=== PATIENT | male | born 1975 | race Caucasian/White ===

== ENCOUNTER 2022-06-18 10:04 | Emergency (ER) | payer OTHER, SELFPAY ==
[2022-06-18 10:21] VITALS: BP 148/65; PULSE 89; RESP 18; TEMP 36.2; O2SAT 98; BMI 38.3
--- NOTE | 2022-06-18 10:33 | CRLHL7_ITS ---
For Patients: As a result of the Century Cures Act, medical imaging exams and procedure reports are released immediately into your electronic medical record. You may view this report before your referring provider. If you have questions, please contact your health care provider. Indication: Swelling inguinal region-rule out abscess Technique: Grayscale and color Doppler ultrasound of the right upper thigh in the inguinal region. Comparison: None Findings: Within the right upper thigh anteriorly and associated with the surgical incision, there is a circumscribed mildly hypoechoic collection of fluid in the subcutaneous tissues measuring 7.5 x 3.4 x 5.9 cm. No solid component and no internal vascularity. Impression: 7.9 x 3.4 x 5.9 cm fluid collection within the subcutaneous tissues of the right anterior thigh in the inguinal region may represent an infected postop seroma. Dictated by Sergei Treadwell MD @ 06/18/2022 11:28:08 AM (Electronically Signed)
--- NOTE | 2022-06-18 10:44 | ED_ITS ---
HPI - General Adult General Chief complaint: Post Op Complication Stated complaint: Irritated incision on right leg Time Seen by Provider: 06/18/22 10:26 Source: patient Mode of arrival: ambulatory Limitations: no limitations History of Present Illness HPI narrative: 46-year-old male coming in today complaining of right leg swelling. States that he had an umbilical hernia repair surgery in December and he had some swollen lymph nodes in the inguinal region that were biopsied. He states that the incision of the right inguinal region has never quite healed appropriately. He states that becomes swollen and then goes back to normal. He states that sometimes it turns bright red and then goes back to normal. However yesterday it got significantly swollen more so than ever before became red and hot and he went into the [place] ER. He was told to take ibuprofen. Patient states that since then it has become even more swollen and quite tender to touch. He had a fever yesterday of greater than 100. No fevers today that he is aware of. Denies any nausea or vomiting. Not having any chills. Related Data Previous Rx's Medication Instructions Recorded cephalexin 500 mg capsule 500 mg PO QID 7 days #28 caps 06/18/22 Allergies Allergy/AdvReac Type Severity Reaction Status Date / Time No Known Drug Allergies Allergy Verified 06/18/22 10:26 Review of Systems Status of ROS: Reports: 10 or more systems reviewed and unremarkable except as noted in History and below [facility] Social History Smoking Status: Never smoker Do you use any of these nicotine containing products: None How often do you have a drink containing alcohol: monthly or less AUDIT-C Alcohol total score: 1 Non-prescribed substance use: denies use Exam Narrative: Exam Narrative: Well-nourished well-developed patient in no acute distress. Alert and oriented. Answers questions appropriately. Mood and affect are appropriate. Thoughts are goal oriented and rational. No tangential or magical thinking noted. Patient speaks in full sentences without needing to catch their breath. HEENT: Normocephalic atraumatic. Pupils are equally round reactive to light. Extraocular muscles are intact. Conjunctivae are moist without any icterus noted. Moist mucous membranes. Cardiovascular: Heart is regular rate and rhythm S1 and S2 are present without any murmurs. Lungs: Clear to auscultation bilaterally no wheezes rhonchi or rales are appreciated. Patient takes deep breaths without any discomfort. Abdomen: Soft and nontender nondistended with normal bowel sounds. Extremities: Bilateral lower extremities are without edema. Right inguinal region shows a healed incision however the entire area is quite swollen, tender, firm and hot to touch consistent with a cellulitis. I do not appreciate any areas of fluctuance however there is a large amount of swelling present. Const: Vital Signs, click to edit/add: Vital Signs - 24 hr 06/18/22 10:21 Temperature 97.2 F L Pulse Rate [Right Pulse Oximeter] 89 Respiratory Rate 18 Blood Pressure [Ri ght Upper Arm] 148/65 H Pulse Oximetry 98 Oxygen Delivery Me thod Room Air Course Course Hospital Course: Given the amount of swelling present we did go ahead and proceed with an ultrasound which showed an almost 8 cm x 5 cm pocket representing an infected seroma. Did consult with our surgeon, Dr. Garcia, who recommended aspiration and antibiotic treatment with follow-up in the surgical clinic. Therefore, area was cleaned in the usual sterile manner and a 22 gauge needle was used. 3 mL of clear yellow color serous fluid was aspirated. I was not able to get any more than that. Did attempt a 2nd location without success. Upon removal of the needle the puncture wound did continue to leak clear fluid. Pressure dressing was applied. Fluid was sent for culture. Vital Signs Vital signs: Initial Vital Signs Temperature 97.2 F L 06/18/22 10:21 Temperature Source Temporal Artery Scan 06/18/22 10:21 Pulse Rate 89 06/18/22 10:21 Respiratory Rate 18 06/18/22 10:21 Blood Pressure 148/65 H 06/18/22 10:21 Blood Pressure Mean 92 06/18/22 10:21 Blood Pressure Position Sitting 06/18/22 10:21 Pulse Oximetry 98 06/18/22 10:21 Oxygen Delivery Method 06/18/22 10:21 Vital Signs Temperature 97.2 F L 06/18/22 10:21 Pulse Rate 89 06/18/22 10:21 Respiratory Rate 18 06/18/22 10:21 Blood Pressure 148/65 H 06/18/22 10:21 Pulse Oximetry 98 06/18/22 10:21 Oxygen Delivery Method 06/18/22 10:21 Temperature 97.2 F L 06/18/22 10:21 Pulse Rate 89 06/18/22 10:21 Respiratory Rate 18 06/18/22 10:21 Blood Pressure 148/65 H 06/18/22 10:21 Pulse Oximetry 98 06/18/22 10:21 Oxygen Delivery Method 06/18/22 10:21 Medical Decision Making MDM Narrative Medical decision making narrative: 46-year-old male with postoperative infected seroma. Drain per above. Patient will be put on Keflex q.i.d. for the next week. And he will follow up with our surgery team next week as well. Imaging Data Soft tissue ultrasound: Attestation: I have reviewed the pertinent imaging results. Radiologist's impression: Swelling inguinal region-rule out abscess Technique: Grayscale and color Doppler ultrasound of the right upper thigh in the inguinal region. Comparison: None Findings: Within the right upper thigh anteriorly and associated with the surgical incision, there is a circumscribed mildly hypoechoic collection of fluid in the subcutaneous tissues measuring 7.5 x 3.4 x 5.9 cm. No solid component and no internal vascularity. Impression: 7.9 x 3.4 x 5.9 cm fluid collection within the subcutaneous tissues of the right anterior thigh in the inguinal region may represent an infected postop seroma. Discharge Plan Discharge Clinical Impression: Infected postoperative seroma Patient Disposition: Home, Self-Care Condition: Stable Additional Instructions: Take all antibiotics as prescribed. Follow-up with surgery this coming week-an appointment will be made for you today if possible. Return to the ER if the area gets worse instead of better over the next 48 hours. Prescriptions: New cephalexin 500 mg capsule 500 mg PO QID 7 Days Qty: 28 0RF Follow Up/Referrals: Provider,Not a Local [Primary Care Provider] - Stand Alone Forms: [facility] Info Instructions
== END 2022-06-18 12:56 | disposition home or self-care (01) ==
PROVIDERS: Emergency Provider Family Medicine
DX: L76.34 Postprocedural seroma of skin and subcutaneous tissue following other procedure (principal)
CPT/HCPCS: 10140; 76882; 87070; 87186; 99284

== ENCOUNTER 2022-06-22 10:43 | Day surgery (SDC) | payer OTHER, SELFPAY ==
[2022-06-22 11:01] VITALS: BP 148/112; PULSE 89; RESP 18; TEMP 36.1; O2SAT 96; BMI 37.9
[2022-06-22] MEDS: 0.9 % SODIUM CHLORIDE 1000 ml 1,000 ML IV (11:30)
[2022-06-22] MEDS: KETOROLAC 30 MG/ML inj IVP (11:35)
[2022-06-22 11:37] LABS: Basophils Absolute Auto 0.02 K/uL (0.00-0.30); Basophils Percent Auto 0.3 % (0.0-3.0); Eosinophils Absolute Auto 0.11 K/uL (0.00-0.50); Eosinophils Percent Auto 1.6 % (0.0-7.0); Hematocrit 44.7 % (37.0-53.0); Hemoglobin* 14.8 gm/dL (13.5-17.5); Immature Granulocytes Abs Auto 0.11 K/uL (0.00-0.30); Immature Granulocytes Pct Auto 1.6 %; Lymphocytes Percent Auto 18.5 % (20-44); Mean Corpuscular HGB Conc 33 gm/dL (32-36); Mean Corpuscular Hemoglobin 30 pg (26-34); Mean Corpuscular Volume 90 fL (80-100); Monocytes Percent Auto 10.8 % (0.0-11.0); Neutrophils Absolute Auto 4.52 K/uL (1.7-7.0); Neutrophils Percent Auto 67.2 % (42.0-72.0); Platelet Count* 289 K/uL (140-440); RDW Coefficient of Variation % 13.1 % (11.5-15.5); Red Blood Count 4.98 m/uL (4.30-5.90); White Blood Count* 6.74 K/uL (4.50-11.00)
[2022-06-22 11:38] LABS: Slide Review Reflex No
[2022-06-22 11:52] LABS: Chloride* 108 mmol/L (96-114); Potassium* 4.7 mmol/L (3.6-5.1); Sodium* 140 mmol/L (135-149)
[2022-06-22 11:54] LABS: Creatinine* 0.9 mg/dL (0.5-1.5); Estimated Glomerular Filt Rate 105 ml/min
[2022-06-22 11:55] LABS: Blood Urea Nitrogen* 14 mg/dL (5-24); Carbon Dioxide* 25 mmol/L (20-32); Glucose* 106 mg/dL (60-115)
[2022-06-22 11:56] LABS: Calcium* 8.5 mg/dL (8.4-10.6)
[2022-06-22 12:12] LABS: SARS PCR* Negative SARS-CoV-2 (Negative)
--- NOTE | 2022-06-22 12:33 | ED_ITS ---
HPI - Skin/Abscess/Foreign Bdy General Date Seen: 06/22/22 Chief complaint: Skin/Abscess/Foreign Body Stated complaint: cellulitis Time Seen by Provider: 06/22/22 10:48 Source: patient Mode of arrival: ambulatory Limitations: no limitations History of Present Illness HPI narrative: Patient is a 38-year-old gentleman who has been struggling with a right-sided groin all issue. Please see the previous note by the ER physician a few days ago, he had lymph node biopsy done at [facility], he was seen here, few days ago started on Keflex aspiration was done which is growing staphylococcal aureus. His fevers are markedly improved but the swelling has gotten bigger if anything since this occurred he denies squeezing it, there has been no discharge. The lymph node he knows is negative for malignancy. But he says is growing in size. Came back to the emergency room for both pain and also the size of it. Previously seen in [facility] emergency room where they told him to take Tylenol and ibuprofen. complaint: abscess/boil Onset (ago): week(s) Tetanus up to date: yes Severity: moderate Quality: aching Pain Consistency: constant Relieving factors: none Exacerbating factors: palpation Treatments prior to arrival: none Related Data Previous Rx's Medication Instructions Recorded cephalexin 500 mg capsule 500 mg PO QID 7 days #28 caps 06/18/22 Allergies Allergy/AdvReac Type Severity Reaction Status Date / Time No Known Drug Allergies Allergy Verified 06/22/22 13:35 Review of Systems Status of ROS: Reports: 10 or more systems reviewed and unremarkable except as noted in History and below PFSH PFSH Medical History (Updated 06/22/22 @ 13:38 by Garett Gonzalez MD) Obesity Surgical History (Updated 06/22/22 @ 13:25 by Laura Vazquez MD) H/O lymph node biopsy H/O umbilical hernia repair S/P knee surgery Social History Smoking Status: Never smoker Do you use any of these nicotine containing products: None How often do you have a drink containing alcohol: monthly or less AUDIT-C Alcohol total score: 1 Non-prescribed substance use: denies use Exam Narrative: Exam Narrative: Examination shows a large abdomen, no tenderness to palpation but the right groin has an area of approximately 6 x 6 cm, which is reddened and sore. I was able to use the ultrasound machine which showed septated areas of fluid that is nonvascular, consistent with multiple abscesses. I did speak to Dr. Vazquez from General surgery, she will come and see the patient. Const: Vital Signs, click to edit/add: Vital Signs - 24 hr 06/22/22 11:01 Temperature 97.0 F L Pulse Rate [Right Pulse Oximeter] 89 Respiratory Rate 18 Blood Pressure [Le ft Upper Arm] 148/112 H Pulse Oximetry 96 Oxygen Delivery Me thod Room Air Documenting provider has reviewed patient's vital signs: yes Course Vital Signs Vital signs: Initial Vital Signs Temperature 97.0 F L 06/22/22 11:01 Temperature Source Temporal Artery Scan 06/22/22 11:01 Pulse Rate 89 06/22/22 11:01 Respiratory Rate 18 06/22/22 11:01 Blood Pressure 148/112 H 06/22/22 11:01 Blood Pressure Mean 124 06/22/22 11:01 Blood Pressure Position Sitting 06/22/22 11:01 Pulse Oximetry 96 06/22/22 11:01 Oxygen Delivery Method 06/22/22 11:01 Vital Signs Temperature 97.0 F L 06/22/22 11:01 Pulse Rate 89 06/22/22 11:01 Respiratory Rate 18 06/22/22 11:01 Blood Pressure 148/112 H 06/22/22 11:01 Pulse Oximetry 96 06/22/22 11:01 Oxygen Delivery Method 06/22/22 11:01 Temperature 97.0 F L 06/22/22 11:01 Pulse Rate 89 06/22/22 11:01 Respiratory Rate 18 06/22/22 11:01 Blood Pressure 148/112 H 06/22/22 11:01 Pulse Oximetry 96 06/22/22 11:01 Oxygen Delivery Method 06/22/22 11:01 MDM - Skin/Abscess/Foreign Bdy Lab Data Labs: Lab Results 06/22/22 06/22/22 06/22/22 Range/Units 11:11 11:30 11:30 WBC 6.74 (4.50-11.00) K/uL RBC 4.98 (4.30-5.90) m/uL Hgb 14.8 (13.5-17.5) gm/dL Hct 44.7 (37.0-53.0) % MCV 90 (80-100) fL MCH 30 (26-34) pg MCHC 33 (32-36) gm/dL RDW Coeff of Shayne 13.1 (11.5-15.5) % Plt Count 289 (140-440) K/uL Neut % (Auto) 67.2 (42.0-72.0) % Lymph % (Auto) 18.5 L (20-44) % Hooker % (Auto) 10.8 (0.0-11.0) % Eos % (Auto) 1.6 (0.0-7.0) % Baso % (Auto) 0.3 (0.0-3.0) % Neut # (Auto) 4.52 (1.7-7.0) K/uL Lymph # (Auto) 1.20 (0.90-2.90) K/uL Hooker # (Auto) 0.70 (0.00-0.90) K/UL Eos # (Auto) 0.11 (0.00-0.50) K/uL Baso # (Auto) 0.02 (0.00-0.30) K/uL Sodium 140 (135-149) mmol/L Potassium 4.7 (3.6-5.1) mmol/L Chloride 108 (96-114) mmol/L Carbon Dioxide 25 (20-32) mmol/L BUN 14 (5-24) mg/dL Creatinine 0.9 (0.5-1.5) mg/dL Estimated Creat Clear 116.70 Estimated GFR 105 ml/min Glucose 106 (60-115) mg/dL Calcium 8.5 (8.4-10.6) mg/dL SARS-CoV-2 (PCR) Negative SARS-CoV-2 (Negative) Influenza Type A (PCR) Negative PCR FLU A (Negative) Influenza Type B (PCR) Negative PCR FLU B (Negative) RSV (PCR) Negative PCR RSV (Negative) Discharge Plan Discharge Clinical Impression: Abscess of skin or subcutaneous tissue, Infected postoperative seroma Patient Disposition: Admitted As Inpatient Condition: Stable Discharge Comment: Admitted to same-day surgery to undergo procedure with Dr. Mely klein
[2022-06-22 12:48] LABS: PCR FLU A Negative PCR FLU A (Negative); PCR FLU B Negative PCR FLU B (Negative); PCR RSV Negative PCR RSV (Negative)
--- NOTE | 2022-06-22 13:21 | PM.GSHP ---
History of Present Illness History of Present Illness Date Seen: 06/22/22 Chief complaint: cellulitis Narrative: You Roth is a 46 year old male who presents to the emergency department with 4 days of painful swelling of his right groin. He states that back in December [place] [facility] [place] which he describes as a burst umbilical hernia. It sounds as though he had an umbilical hernia with skin ulceration and underwent urgent repair. He had a CT scan which showed apparently some lymphadenopathy inside the same time a right groin lymph node biopsy was performed. Postoperatively he had pain and swelling of the groin however he was told that it would resolve. Occasionally the pain and swelling they get bigger and smaller but on he states that the pain became very severe and the swelling became large. He states he woke up and it felt almost like the scratching discomfort in his groin. He was seen in the ED in [place] and he was told to take Tylenol and ibuprofen. On he had a fever up to 103 as well as body aches. The next morning he came into the emergency department here at [place]. A fluid collection was found. Aspiration was attempted. Staff grew from the fluid culture. He was placed on Keflex. He went to work this weekend however this comfort has persisted and he presented again to the emergency department. 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 He does not smoke. He drinks minimal alcohol. Smoking Status: Never smoker Do you use any of these nicotine containing products: None Second hand tobacco smoke exposure: No How often do you have a drink containing alcohol: monthly or less Alcohol type: beer How many standard drinks containing alcohol do you have on a typical day: 1 or 2 How often do you have six or more drinks on one occasion: Never AUDIT-C Alcohol total score: 1 Non-prescribed substance use: denies use Caffeine: Yes (pop) service: No Meds Home Medications and Allergies Allergies Allergy/AdvReac Type Severity Reaction Status Date / Time No Known Drug Allergies Allergy Verified 06/22/22 13:35 Exam Narrative: Exam Narrative: General: No acute distress CV: Regular rate Respiratory: Breathing nonlabored on room air Abdomen: Umbilical scar noted. No erythema. Extremities: On his right groin surrounding his prior surgical scar he has a firm raised area with fluctuance on the lateral aspect. There is no drainage. This measures approximately 10 x 5 cm. There is erythema extending approximately 7 x 15 cm. The erythema does track down his inner thigh. Const: Vital Signs, click to edit/add: Vital Signs - 24 hr 06/22/22 11:01 Temperature 97.0 F L Pulse Rate [Right Pulse Oximeter] 89 Respiratory Rate 18 Blood Pressure [Le ft Upper Arm] 148/112 H Pulse Oximetry 96 Oxygen Delivery Me thod Room Air Results Results Additional studies: Ultrasound reviewed and shows a large fluid collection in the subcutaneous. Assessment and Plan Assessment and plan (1) Abscess of skin or subcutaneous tissue: Status: Acute (2) Infected postoperative seroma: Status: Acute Plan The patient is a 46-year-old male with likely an infected seroma after right groin lymph node biopsy. We discussed that this should be opened up in the OR. We will leave it to heal by secondary intention, possibly with a wound VAC. We will also obtain wound culture. He is agreeable to proceed and we will plan on surgery as soon as the OR is available. He has not eaten today.
[2022-06-22] MEDS: LACTATED RINGERS 1000 ML 1,000 ML 100 ML IV (13:35)
[2022-06-22 13:36] VITALS: BMI 37.8
[2022-06-22 13:41] VITALS: BP 145/102; PULSE 87; RESP 20; TEMP 36.9; O2SAT 98
[2022-06-22] MEDS: SODIUM CHLORIDE 0.9 % (FLUSH) 10 ML SYRINGE IVF (13:50)
[2022-06-22] MEDS: CEFAZOLIN 1 GM inj 3 GM IVP (14:10)
[2022-06-22] MEDS: BUPIVACAINE LIPOSOME 133 MG/10 ML INJ INFILTRATI (14:30)
[2022-06-22] MEDS: BUPIVACAINE 0.25% 30 ML INJECTION (14:30)
[2022-06-22 14:48] VITALS: BP 126/91; PULSE 86; RESP 16; TEMP 36.3; O2SAT 96
--- NOTE | 2022-06-22 14:48 | W.ANESCHARGE ---
Anesthesia Charges Start Date/Time Anesthesia Start Date: 06/22/22 Anesthesia Start Time: 14:00 Stop Date/Time Anesthesia Stop Date: 06/22/22 Anesthesia Stop Time: 14:48 Summary Emergency: [facility]
--- NOTE | 2022-06-22 14:59 | W.ANESCHARGE ---
Anesthesia Charges Start Date/Time Anesthesia Start Date: 06/22/22 Anesthesia Start Time: 14:00 Stop Date/Time Anesthesia Stop Date: 06/22/22 Anesthesia Stop Time: 14:48 Summary Emergency: MDA
[2022-06-22 15:00] VITALS: BP 124/99; PULSE 93; RESP 16; O2SAT 93
--- NOTE | 2022-06-22 15:08 | SUR.PHASEII ---
Pt returned from OR alert and denies any pain eating toast ans pop states he feels great wound vac in place site clean and dry although red and swollen Dr. Vazquez into see pt
[2022-06-22 15:15] VITALS: BP 133/84; PULSE 87; RESP 16; TEMP 36.3; O2SAT 96
--- NOTE | 2022-06-22 15:27 | PM.GSPRC ---
Operative Note Date of procedure: 06/22/22 Pre-op diagnosis: Right thigh abscess Post-op diagnosis: Infected right thigh chronic seroma Type of Procedure: Incision and drainage of a right thigh chronic seroma Indications: The patient is a 38-year-old male who underwent a right thigh lymph node biopsy in December of 2021. He always had a lump in the area of but within the last week has developed redness and pain. The area was found to contain a large fluid collection. This was aspirated and found to be growing a type of Staph. He did not improve on antibiotics and re-presented to the emergency department. On exam he had an area of cellulitis with a fluctuant fluid collection. It was felt he was in need of drainage. Procedure Description: After discussing the risks and benefits of the procedure, the patient signed informed consent.? The operative site was marked and the patient was brought to the operating room and placed on the operating table in supine position.? Care was taken to pad the patient's pressure points.?? The patient was then given sedation by anesthesia.?? The operative site was then prepped and draped in the usual sterile fashion.? A time-out was then performed. Local anesthetic was injected into the skin and subcutaneous tissue over the prior incision. The lateral aspect was incised with a knife. A Georgie clamp was used to incise into the subcutaneous tissue and copious fluid returned. This was slightly murky though primarily serous. I palpated in the wound and the wound was extended found to extend superiorly and inferiorly onto the thigh. I then used a knife to incise the prior incision along its length and divided the subcutaneous fat using cautery. A chronic seroma cavity was noted. A culture was taken from the fluid and sent to microbiology. The seroma cavity measured 5 cm wide by 7 cm long by 5 cm deep. Using cautery I excised the most superficial portion, however because the deep portion was overlying the femoral vasculature, I used a combination of cautery and a cautery scratch pad to rough up the inside of the cavity to promote healing. There was excellent blood flow to the entire cavity. Once this was done the wound was irrigated with saline. Exparel and Marcaine were then injected into the skin and subcutaneous tissue around the wound. A wound VAC was then applied. The patient was then woken and transported to the recovery area in stable condition. ? The patient tolerated the procedure well. Findings: Large chronic right thigh seroma. Anesthesia: MAC Surgeon: Laura Vazquez MD Estimated blood loss (mL): 5 Additional Specimen Information: Fluid from culture from right thigh seroma Condition: stable Disposition: same day
[2022-06-22 15:30] VITALS: BP 147/91; PULSE 88; RESP 16; TEMP 36.3; O2SAT 96
--- NOTE | 2022-06-22 16:42 | SUR.PHASEII ---
Pts wound vac did not seem to be working Dr. Vazquez reapplied dressing and wound vac and now vac is working fine instructions given to pt and girlfriend pt eating and drinking fine ready to go home
== END 2022-06-22 16:48 | disposition home or self-care (01) ==
LOC: ED 13:10 → SS 13:27
PROVIDERS: Emergency Provider Family Medicine; Visit Provider Surgery
PROC: (CPT 10140; principal; 2022-06-22 14:00)
DX: L02.214 Cutaneous abscess of groin (principal); L03.314 Cellulitis of groin
CPT/HCPCS: 10140; 00400; 36415; 80048; 85025; 87070; 87075; 87205; 87502; 87634; 87635; 99140; 99283; 99284; C9290; J0690; J1885; J2250; J2704; J3010; J3490; J7030; J7120

== ENCOUNTER 2022-06-27 09:57 | Outpatient (RCR) | payer OTHER, SELFPAY | END 2022-06-27 10:20 | disposition home or self-care (01) | LOC: MS OUT 09:57 | PROVIDERS: Visit Provider Surgery | DX: Z48.89 Encounter for other specified surgical aftercare (principal); Z48.01 Encounter for change or removal of surgical wound dressing; L76.34 Postprocedural seroma of skin and subcutaneous tissue following other procedure | CPT/HCPCS: 99211 ==

== ENCOUNTER 2022-07-01 12:12 | Outpatient (CLI) | payer OTHER, SELFPAY ==
--- NOTE | 2022-07-01 12:25 | PC.NURSE ---
pt came in for a dressing change. got a written order from Dr. Hull to do this today per Dr. Bennett written orders. dressing change was done wet to dry with Vashe, no drainage was noted not Mepilex. pt had no pain. s
== END 2022-07-01 12:31 | disposition home or self-care (01) ==
LOC: MS OUT 12:13 → MEDSURG 12:32 → MS OUT 16:40
PROVIDERS: PCP Surgery; Visit Provider Surgery
DX: Z48.01 Encounter for change or removal of surgical wound dressing (principal)
CPT/HCPCS: 99211

== ENCOUNTER 2022-07-03 10:21 | Outpatient (CLI) | payer OTHER, SELFPAY ==
--- NOTE | 2022-07-03 10:47 | PC.NURSE ---
Wound dressing change performed, wound cleansed with vashe, and packed with kerlix moistened Vashe, covered with 4x4 mepilex. Patient tolerated dressing change well and left the floor at 1046.
== END 2022-07-03 10:29 | disposition home or self-care (01) ==
LOC: MS OUT 10:22 → MEDSURG 10:37 → MS OUT 15:42
PROVIDERS: PCP Surgery; Visit Provider Surgery
DX: Z48.01 Encounter for change or removal of surgical wound dressing (principal)
CPT/HCPCS: 99211

== ENCOUNTER 2022-07-04 11:29 | Outpatient (CLI) | payer OTHER, SELFPAY ==
--- NOTE | 2022-07-04 11:55 | PC.NURSE ---
Patient wound dressing performed, patient tolerated well. Patient appears to be improving. Packed with vashe moistened kerlix and covered with mepilex.
== END 2022-07-04 11:45 | disposition home or self-care (01) ==
LOC: MS OUT 11:30 → MEDSURG 07-06 18:34
PROVIDERS: PCP Surgery; Visit Provider Surgery
DX: Z48.01 Encounter for change or removal of surgical wound dressing (principal)
CPT/HCPCS: 99211

== ENCOUNTER 2022-07-10 10:52 | Outpatient (CLI) | payer OTHER, SELFPAY ==
--- NOTE | 2022-07-10 11:12 | PC.NURSE ---
Pt is here for a dressing change.? no pain. dressing change per md orders.? ? dressing change was done wet to dry with Vashe,? no drainage was noted not Mepilex.?
== END 2022-07-10 11:11 | disposition home or self-care (01) ==
LOC: MS OUT 10:52 → MEDSURG 10:56 → MS OUT 12:21
PROVIDERS: Visit Provider Surgery
DX: Z48.00 Encounter for change or removal of nonsurgical wound dressing (principal); L76.34 Postprocedural seroma of skin and subcutaneous tissue following other procedure
CPT/HCPCS: 99211

== ENCOUNTER 2022-07-11 11:26 | Outpatient (CLI) | payer OTHER, SELFPAY ==
--- NOTE | 2022-07-11 12:15 | PC.NURSE ---
Ptback for a dressing change.? no pain. ? dressing change per md orders.? ? dressing change was done wet to dry with Vashe,? small amount of drainage was noted on Mepilex.?
== END 2022-07-11 11:46 | disposition home or self-care (01) ==
LOC: MS OUT 11:27 → MEDSURG 11:30 → MS OUT 17:26
PROVIDERS: Visit Provider Surgery
DX: Z48.00 Encounter for change or removal of nonsurgical wound dressing (principal)
CPT/HCPCS: 99211

== ENCOUNTER 2023-01-18 13:43 | Emergency (ER) | payer OTHER, SELFPAY ==
[2023-01-18 14:06] VITALS: BP 141/91; PULSE 100; RESP 14; TEMP 36.1; O2SAT 95; BMI 38.5
--- NOTE | 2023-01-18 15:50 | ED.NURSE ---
Pt left lower leg/calf laceration cleaned with hibicleanse. Pt tolerated well. Approx 3.5 inch long gaping wound present. Not actively bleeding at this time.
--- NOTE | 2023-01-18 16:59 | ED.WOUNDLAC ---
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 Place: work Patient tetanus UTD: No Context: accidental Associated symptoms: none Related Data Home Medications Medication Instructions Recorded Confirmed No Known Home Medications 07/19/22 01/18/23 Allergies Allergy/AdvReac Type Severity Reaction Status Date / Time No Known Drug Allergies Allergy Verified 01/18/23 14:12 Review of Systems Status of ROS: Reports: 6 or more systems reviewed and unremarkable except as noted in History and below PFSH PFS Medical History (Updated 01/18/23 @ 16:57 by Garett Gonzalez MD) Obesity ?E66.9 - Obesity, unspecified (ICD-10) Surgical History (Updated 06/22/22 @ 13:25 by Laura Vazquez MD) S/P knee surgery ?Z98.890 - Other specified postprocedural states (ICD-10) H/O lymph node biopsy ?Z98.890 - Other specified postprocedural states (ICD-10) H/O umbilical hernia repair ?Z98.890 - Other specified postprocedural states (ICD-10) ?Z87.19 - Personal history of other diseases of the digestive system (ICD-10) Social History (Updated 06/22/22 @ 15:25 by Laura Vazquez MD) Narrative: 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 He does not smoke. He drinks minimal alcohol. Smoking Status: Never smoker Do you use any of these nicotine containing products: None Second hand tobacco smoke exposure: No How often do you have a drink containing alcohol: monthly or less Alcohol type: beer How many standard drinks containing alcohol do you have on a typical day: 1 or 2 How often do you have six or more drinks on one occasion: Never AUDIT-C Alcohol total score: 1 Non-prescribed substance use: denies use Caffeine: Yes (pop) service: No Exam Narrative: Exam Narrative: On examination of the left calf he has normal plantar and dorsiflexion, he has missed his german Achilles tendon, it is pretty well in the distal 3rd of the calf. More on the lateral than the medial side, laceration length is approximately 4 in in his gaping, sensation is normal over here is normal cap refill, and overall neurologically intact I discussed with him, this should be fixed with sutures, 1% lidocaine with epinephrine is infiltrated times nice mL around the wound, cleaned out with 500 mL normal saline done after irrigation. Sterile prep and drape is done, 3 simple 3-0 Vicryl sutures are used to approximate the fascia as it just below the subcutaneous tissue. I then was able to use for simple 3-0 Prolene sutures to approximate the skin and subcutaneous tissue. He tolerated this well there is no complications estimated blood loss less than 2 mL. Dressing along with the bacitracin is applied. I discussed with him we should use antibiotics given the fact that this is somewhat deep, he is in agreement. Sutures should come out in 14 days with primary care. Signs symptoms infection discussed. Const: Vital Signs, click to edit/add: Vital Signs - 24 hr 01/18/23 14:06 Temperature 96.9 F L Pulse Rate [Right Pulse Oximeter] 100 Respiratory Rate 14 Blood Pressure [Ri ght Upper Arm] 141/91 H Pulse Oximetry 95 Oxygen Delivery Me thod Room Air Documenting provider has reviewed patient's vital signs: yes Course Vital Signs Vital signs: Initial Vital Signs Temperature 96.9 F L 01/18/23 14:06 Temperature Source Temporal Artery Scan 01/18/23 14:06 Pulse Rate 100 01/18/23 14:06 Respiratory Rate 14 01/18/23 14:06 Blood Pressure 141/91 H 01/18/23 14:06 Blood Pressure Mean 107 H 01/18/23 14:06 Blood Pressure Position Supine 01/18/23 14:06 Pulse Oximetry 95 01/18/23 14:06 Oxygen Delivery Method Room Air 01/18/23 14:06 Vital Signs Temperature 96.9 F L 01/18/23 14:06 Pulse Rate 100 01/18/23 14:06 Respiratory Rate 14 01/18/23 14:06 Blood Pressure 141/91 H 01/18/23 14:06 Pulse Oximetry 95 01/18/23 14:06 Oxygen Delivery Method Room Air 01/18/23 14:06 Temperature 96.9 F L 01/18/23 14:06 Pulse Rate 100 01/18/23 14:06 Respiratory Rate 14 01/18/23 14:06 Blood Pressure 141/91 H 01/18/23 14:06 Pulse Oximetry 95 01/18/23 14:06 Oxygen Delivery Method Room Air 01/18/23 14:06 Discharge Plan Discharge Clinical Impression: Laceration Patient Disposition: Home, Self-Care Condition: Improved Instructions: Laceration (DC) Additional Instructions: Home rest, antibiotics for prophylaxis, this was a bit of a deep laceration, sutures should come out 14 days, please make an appointment with Dr. Swenson, infection is redness, swelling, fevers chills, or increasing pain. He should follow up here if that occurs. Otherwise daily bacitracin to the wound, dry dressing, and no swimming, or immersing in water. Showering should be encouraged. Prescriptions: No Action No Known Home Medications Follow Up/Referrals: Sergei Swenson MD [Primary Care Provider] - Stand Alone Forms: [employer] Info Instructions
[2023-01-18] MEDS: TETANUS/DIPHTH/PERTUSSIS 0.5 ML SYRINGE IM (17:06)
== END 2023-01-18 17:11 | disposition home or self-care (01) ==
PROVIDERS: Emergency Provider Family Medicine; PCP Family Medicine
DX: S81.812A Laceration without foreign body, left lower leg, initial encounter (principal)
CPT/HCPCS: 12004; 90471; 90715; 99283

== ENCOUNTER 2023-02-10 09:04 | Outpatient (CLI) | payer OTHER, SELFPAY | END 2023-02-10 09:05 | disposition home or self-care (01) | LOC: WOUND 09:04 | PROVIDERS: PCP Family Medicine; Visit Provider Nurse Practitioner Family | DX: S81.812A Laceration without foreign body, left lower leg, initial encounter (principal) | CPT/HCPCS: 97597; 99213 ==

== ENCOUNTER 2023-02-17 08:30 | Outpatient (CLI) | payer OTHER, SELFPAY | END 2023-02-17 23:59 | disposition home or self-care (01) | LOC: WOUND 03-04 15:59 | PROVIDERS: PCP Family Medicine; Visit Provider Nurse Practitioner Family | DX: S81.812A Laceration without foreign body, left lower leg, initial encounter (principal) | CPT/HCPCS: 11042 ==

== ENCOUNTER 2023-02-24 09:02 | Outpatient (CLI) | payer OTHER, SELFPAY | END 2023-02-24 09:03 | disposition home or self-care (01) | LOC: WOUND 09:02 | PROVIDERS: PCP Family Medicine; Visit Provider Nurse Practitioner Family | DX: S81.812A Laceration without foreign body, left lower leg, initial encounter (principal) | CPT/HCPCS: 99212 ==

== ENCOUNTER 2023-03-03 09:35 | Outpatient (CLI) | payer OTHER, SELFPAY | END 2023-03-03 09:36 | disposition home or self-care (01) | LOC: WOUND 09:35 | PROVIDERS: PCP Family Medicine; Visit Provider Nurse Practitioner Family | DX: S81.812A Laceration without foreign body, left lower leg, initial encounter (principal) | CPT/HCPCS: 11042 ==

== ENCOUNTER 2023-03-10 09:14 | Outpatient (CLI) | payer OTHER, SELFPAY | END 2023-03-10 09:15 | disposition home or self-care (01) | LOC: WOUND 09:14 | PROVIDERS: PCP Family Medicine; Visit Provider Nurse Practitioner Family | DX: S81.812A Laceration without foreign body, left lower leg, initial encounter (principal) | CPT/HCPCS: 97597 ==

== ENCOUNTER 2023-03-17 09:12 | Outpatient (CLI) | payer OTHER, SELFPAY | END 2023-03-17 09:13 | disposition home or self-care (01) | LOC: WOUND 09:12 | PROVIDERS: PCP Family Medicine; Visit Provider Nurse Practitioner Family | DX: S81.812A Laceration without foreign body, left lower leg, initial encounter (principal); E16.2 Hypoglycemia, unspecified | CPT/HCPCS: 11042; 36416; 82962 ==

== ENCOUNTER 2023-03-24 09:14 | Outpatient (CLI) | payer OTHER, SELFPAY | END 2023-03-24 09:15 | disposition home or self-care (01) | LOC: WOUND 09:14 | PROVIDERS: PCP Family Medicine; Visit Provider Nurse Practitioner Family | DX: S81.812A Laceration without foreign body, left lower leg, initial encounter (principal) | CPT/HCPCS: 97597 ==

== ENCOUNTER 2023-04-07 08:46 | Outpatient (CLI) | payer OTHER, SELFPAY | END 2023-04-07 08:47 | disposition home or self-care (01) | LOC: WOUND 08:46 | PROVIDERS: PCP Family Medicine; Visit Provider Nurse Practitioner Family | DX: S81.812A Laceration without foreign body, left lower leg, initial encounter (principal) | CPT/HCPCS: 97597 ==

== ENCOUNTER 2023-04-25 15:24 | Outpatient (CLI) | payer OTHER, SELFPAY | END 2023-04-25 15:25 | disposition home or self-care (01) | LOC: WOUND 15:24 | PROVIDERS: PCP Family Medicine; Visit Provider Nurse Practitioner Family | DX: S81.812A Laceration without foreign body, left lower leg, initial encounter (principal) | CPT/HCPCS: 99212 ==